=== PATIENT | male | born 1960 | race Caucasian/White ===

== ENCOUNTER → 2023-11-20 | Emergency (ER) | payer SELFPAY ==
[~2023-11-20] VITALS: Ht 185.4 cm; Wt 95.0 kg
[2023-11-20 19:59] VITALS: BP 124/74; TEMP 98.6; O2SAT 100
[2023-11-20 20:10] VITALS: PULSE 87; RESP 16; O2SAT 100
== END ==
LOC: ER 19:14
DX: S90.212A Contusion of left great toe with damage to nail, initial encounter (principal); X58.XXXA Exposure to other specified factors, initial encounter; Y93.89 Activity, other specified; Y92.89 Other specified places as the place of occurrence of the external cause; Y99.8 Other external cause status
CPT/HCPCS: 99281